=== PATIENT | female | born 1960 | race Caucasian/White ===

== ENCOUNTER 2018-12-06 07:46 | Day surgery (SDC) | payer OTHER ==
[~2018-12-06] VITALS: Ht 162.6 cm; Wt 80.3 kg
--- NOTE | ~2018-12-06 | OR ---
[facility] [address], [place] [address] Draft DATE OF OPERATION: 12/06/2018 SURGEON: Gen Monzon MD PREOPERATIVE DIAGNOSIS: Surveillance colonoscopy, history of diverticular disease. POSTOPERATIVE DIAGNOSES: 1. Minimal diverticular changes of sigmoid and left colon. Otherwise normal. 2. External hemorrhoidal changes. PROCEDURE: Total colonoscopy to cecum. ANESTHESIA: Intravenous sedation; fentanyl 150 mcg, Versed 5 mg. INDICATION: This 58-year-old white woman is a patient of Dr. Flakito Cedillo. She last underwent colonoscopy in 2011 showing only diverticular changes. She has no family history of colon cancer. She has had hemorrhoids, which were symptomatic as regard to perianal hygiene. She has no rectal bleeding, incontinence, or other issues. She was admitted at this time to undergo colonoscopy. She understands the risks of bleeding, infection, and perforation. FINDINGS: The prep was excellent. Complete colonoscopy was undertaken to the cecum without question. The appendiceal orifice was well identified. There was no sign of polyps or colitis. She did have a few scattered diverticula. External hemorrhoidal changes were noted. There were no other findings of concern. DESCRIPTION OF PROCEDURE: The patient was brought to the endoscopy suite and placed in lateral decubitus position given intravenous sedation to the point of slurred speech and nystagmus. Digital rectal examination was normal. An Olympus video colonoscope was passed in the rectum and manipulated throughout the colon ultimately intubating the cecum itself. The appendiceal orifice was normal as was the ileocecal valve. The scope was withdrawn from that point. Examination throughout showed no sign of abnormality until the sigmoid where a few scattered diverticula were PATIENT NAME: DL SUTHERLAND OPERATIVE REPORT DATE OF : 60 REPORT #: [id number] PHYSICIAN: GEN MONZON MD PCP: FLAKITO CEDILLO MD REPORT IS CONFIDENTIAL AND NOT TO BE RELEASED WITHOUT AUTHORIZATION [facility] [address] [place] [id number] Draft noted. This was not extensive. There was no sign of stricture or other abnormality. Retroflexed view of the rectum showed no internal hemorrhoidal changes. The scope was removed. The patient was taken to recovery room in good condition. CONCLUDING DIAGNOSES: 1. Minimal diverticular changes. No polyps or colitis. 2. External hemorrhoidal change. PLAN: Recommend repeat colonoscopy in 10 years, sooner if clinically indicated. Maintain high-fiber diet. She will return to the ongoing care of Dr. Cedillo. MD JENNI Carmona/KAMALA /[id number] cc: Flakito Cedillo MD Copies: FLAKITO CEDILLO MD ~ PATIENT NAME: DL SUTHERLAND OPERATIVE REPORT DATE OF : 60 REPORT #: [id number] PHYSICIAN: GEN MONZON MD PCP: FLAKITO CEDILLO MD REPORT IS CONFIDENTIAL AND NOT TO BE RELEASED WITHOUT AUTHORIZATION
[~2018-12-06 07:46] MED LIST: ADVIL200 MG PO; CLINDAMYCIN HC150 MG PO; DILAUDID4 MG PO; NORCO 7.5-3251 EACH PO
--- NOTE | 2018-12-06 08:40 | NUR ---
12/06/18 0840 Sheets,[place] 0896 PT ARRIVED TO PACU ON 3L VIA NC, PT ALSEEP ON LEFT SIDE. RESP EVEN AND UNLABORED. VSS.
== END 2018-12-06 09:17 | disposition home or self-care (01) ==
LOC: DS 07:46 → OPS 07:46 → DS 08:30 → OPS 08:30
PROVIDERS: Surgery
PROC: 0DJD8ZZ Inspection of Lower Intestinal Tract, Via Natural or Artificial Opening Endoscopic (ICD-10-PCS; principal; 2018-12-06 08:30)
DX: Z12.11 Encounter for screening for malignant neoplasm of colon (principal); K57.30 Diverticulosis of large intestine without perforation or abscess without bleeding; K64.4 Residual hemorrhoidal skin tags
CPT/HCPCS: G0500; J2250; J3010; J7120